=== PATIENT | male | born 1965 | race Two or more races ===

== ENCOUNTER 2021-08-18 16:33 | Inpatient (IN) | payer SELFPAY ==
[~2021-08-18] VITALS: Ht 167.6 cm; Wt 68.5 kg
[2021-08-18] MEDS ORDERED: DIPHENHYDRAMINE 50MG/ML VIAL IM STA (17:33)
[2021-08-18] MEDS ORDERED: LORAZEPAM 2MG/ML CPJ IM STA (17:33)
[2021-08-18] MEDS ORDERED: OLANZAPINE 10 MG/VIAL IM STA (17:33)
[2021-08-18] MEDS ORDERED: PIPERACILLIN/TAZ 3.375G PREMIX 50 ML IV ONE (20:15)
[2021-08-18] MEDS ORDERED: VANCOMYCIN 1G PREMIX 200 ML IV ONE (20:15)
[2021-08-18] MEDS ORDERED: SODIUM CHLORIDE 0.9% 1000ML BAG (SEPSIS BOLUS) IV ONE (20:15)
[2021-08-18 21:31] LABS: BASOPHILS % 0.6 % (0.0-2.0); EOSINOPHILS % 1.3 % (0.0-5.0); HEMATOCRIT. 30.6 % (42.0-52.0); HEMOGLOBIN. 10.2 g/dL (14.0-18.0); LYMPHOCYTES % 24.6 % (20.0-50.0); MEAN CORPUSCULAR HEMOGLOBIN 29.3 pg (28.0-32.0); MEAN CORPUSCULAR VOLUME 88.4 fL (80.0-94.0); MEAN PLATELET VOLUME 6.7 fl (7.4-10.4); MONOCYTES % 10.3 % (2.0-8.0); NEUTROPHILS % 63.2 % (40.0-76.0); PLATELET 443 x1000/uL (130-400); RED BLOOD CELL COUNT 3.47 mill/uL (4.7-6.1); RED CELL DISTRIBUTION WIDTH 13.9 % (11.6-14.6)
[2021-08-18 21:46] LABS: CHLORIDE 107 mEq/L (98-107)
[2021-08-18 21:56] LABS: ETHANOL BLOOD < 10 mg/dL
[2021-08-19] MEDS ORDERED: PIPERACILLIN/TAZ 3.375G PREMIX 50 ML IV NR (00:45)
[2021-08-19] MEDS ORDERED: CLONIDINE 0.1MG TABLET PO PRN (10:00)
[2021-08-19] MEDS ORDERED: GUAIFENESIN 200MG/10ML SUGAR FREE UDC PO PRN (10:00)
[2021-08-19] MEDS ORDERED: ONDANSETRON HCL 4MG/2ML INJ IV PRN (10:00)
[2021-08-19] MEDS ORDERED: MAGNESIUM/ALUMINUM HYDROXIDE/SIMETHICONE 30ML UDC PO PRN (10:00)
[2021-08-19] MEDS ORDERED: DOCUSATE SODIUM 100MG CAPSULE PO PRN (10:00)
[2021-08-19] MEDS ORDERED: IPRATROPIUM/ALBUTEROL 0.5-3(2.5)MG/3ML NEB NEB PRN (10:00)
[2021-08-19] MEDS ORDERED: NITROGLYCERIN 0.4MG TABLET SL SL PRN (10:00)
[2021-08-19] MEDS ORDERED: KETOROLAC 15MG/ML VIAL IV PRN (10:00)
[2021-08-19] MEDS ORDERED: ACETAMINOPHEN 325MG TABLET PO PRN ×2 (10:00)
[2021-08-19] MEDS: ZINC SULFATE 220 MG ( 50 ) CAPSULE PO SCH (12:16)
[2021-08-19] MEDS: CHOLECALCIFEROL (D3) 1000 UNIT TABLET PO SCH (12:16)
[2021-08-19] MEDS: ENOXAPARIN 40MG/0.4ML SYR SUBCUT SCH (12:17)
[2021-08-19] MEDS: HALOPERIDOL LACTATE 5MG/ML VIAL IM PRN (14:12)
[2021-08-19] MEDS: PIPERACILLIN/TAZ 3.375G PREMIX 50 ML IV SCH ×2 (15:30→22:00)
[2021-08-19] MEDS: VANCOMYCIN 750 MG in DEXT 5% WATER 250 ML IV SCH ×2 (16:00→20:00)
[2021-08-19] MEDS: RISPERIDONE 0.5MG TABLET PO SCH (17:00)
[2021-08-19 17:39] VITALS: BP 93/55
[2021-08-19] MEDS: ASCORBIC ACID 500 MG TABLET PO SCH (21:00)
[2021-08-19] MEDS: FAMOTIDINE 20MG TABLET PO SCH (21:00)
[2021-08-19 22:05] LABS: CREATINE KINASE MB FRACTION 2.8 ng/mL (0.5-3.6)
[2021-08-19 22:20] LABS: FOLIC ACID (FOLATE) SERUM 10.8 ng/mL (>5.38)
[2021-08-20] VITALS: BP 104/70
[2021-08-20] MEDS: HALOPERIDOL LACTATE 5MG/ML VIAL IM PRN (00:37)
[2021-08-20] MEDS: VANCOMYCIN 750 MG in DEXT 5% WATER 250 ML IV SCH ×3 (04:00→20:00)
[2021-08-20] MEDS: PIPERACILLIN/TAZ 3.375G PREMIX 50 ML IV SCH (05:29)
[2021-08-20] MEDS: FAMOTIDINE 20MG TABLET PO SCH ×2 (09:00→21:21)
[2021-08-20] MEDS: ASCORBIC ACID 500 MG TABLET PO SCH ×2 (09:00→21:21)
[2021-08-20] MEDS: ZINC SULFATE 220 MG ( 50 ) CAPSULE PO SCH (09:00)
[2021-08-20] MEDS: ENOXAPARIN 40MG/0.4ML SYR SUBCUT SCH (09:00)
[2021-08-20] MEDS: RISPERIDONE 0.5MG TABLET PO SCH ×3 (09:00→21:22)
[2021-08-20] MEDS: CHOLECALCIFEROL (D3) 1000 UNIT TABLET PO SCH (09:00)
[2021-08-20 12:00] VITALS: BP 104/51
[2021-08-20] MEDS: PIPERACILLIN/TAZOBACTAM 3.375G in DEXT 5% WATER 50ML IV SCH ×2 (14:00→22:00)
[2021-08-20 16:00] VITALS: BP 99/59
[2021-08-20 17:00] LABS: BASOPHILS % 1.8 % (0.0-2.0); EOSINOPHILS % 1.1 % (0.0-5.0); HEMATOCRIT. 35.5 % (42.0-52.0); HEMOGLOBIN. 11.5 g/dL (14.0-18.0); LYMPHOCYTES % 36.1 % (20.0-50.0); MEAN CORPUSCULAR HEMOGLOBIN 29.2 pg (28.0-32.0); MEAN CORPUSCULAR VOLUME 89.8 fL (80.0-94.0); MEAN PLATELET VOLUME 6.9 fl (7.4-10.4); MONOCYTES % 8.9 % (2.0-8.0); NEUTROPHILS % 52.1 % (40.0-76.0); PLATELET 477 x1000/uL (130-400); RED BLOOD CELL COUNT 3.95 mill/uL (4.7-6.1); RED CELL DISTRIBUTION WIDTH 14.4 % (11.6-14.6)
[2021-08-20 17:30] LABS: CHLORIDE 104 mEq/L (98-107)
[2021-08-20 17:38] LABS: PHOSPHORUS 2.9 mg/dL (2.5-4.9)
[2021-08-20 19:01] VITALS: BP 99/59
[2021-08-20 20:00] VITALS: BP 100/62
[2021-08-20] MEDS: ZOLPIDEM TARTRATE 5MG TABLET PO PRN (21:22)
[2021-08-21] VITALS: BP 132/79
[2021-08-21 04:00] VITALS: BP 108/73
[2021-08-21] MEDS: VANCOMYCIN 750 MG in DEXT 5% WATER 250 ML IV SCH ×3 (04:00→20:00)
[2021-08-21 08:00] VITALS: BP 98/64
[2021-08-21] MEDS: ASCORBIC ACID 500 MG TABLET PO SCH ×2 (09:00→21:28)
[2021-08-21] MEDS: CHOLECALCIFEROL (D3) 1000 UNIT TABLET PO SCH (09:00)
[2021-08-21] MEDS: RISPERIDONE 0.5MG TABLET PO SCH ×2 (09:00→17:00)
[2021-08-21] MEDS: FAMOTIDINE 20MG TABLET PO SCH ×2 (09:00→21:28)
[2021-08-21] MEDS: ENOXAPARIN 40MG/0.4ML SYR SUBCUT SCH (09:00)
[2021-08-21] MEDS: ZINC SULFATE 220 MG ( 50 ) CAPSULE PO SCH (09:00)
[2021-08-21 12:00] VITALS: BP 124/76
[2021-08-21] MEDS: PIPERACILLIN/TAZOBACTAM 3.375G in DEXT 5% WATER 50ML IV SCH ×2 (14:00→22:00)
[2021-08-21 16:00] VITALS: BP 102/69
[2021-08-21 20:00] VITALS: BP 106/67
[2021-08-21] MEDS: ZOLPIDEM TARTRATE 5MG TABLET PO PRN (21:28)
[2021-08-22] VITALS: BP 97/52
[2021-08-22 04:00] VITALS: BP 100/59
[2021-08-22] MEDS: VANCOMYCIN 750 MG in DEXT 5% WATER 250 ML IV SCH ×3 (04:00→19:54)
[2021-08-22] MEDS: PIPERACILLIN/TAZOBACTAM 3.375G in DEXT 5% WATER 50ML IV SCH ×3 (06:00→21:40)
[2021-08-22 08:00] VITALS: BP 106/57
[2021-08-22] MEDS: RISPERIDONE 0.5MG TABLET PO SCH ×2 (09:00→17:00)
[2021-08-22] MEDS: ZINC SULFATE 220 MG ( 50 ) CAPSULE PO SCH (09:00)
[2021-08-22] MEDS: ENOXAPARIN 40MG/0.4ML SYR SUBCUT SCH (09:00)
[2021-08-22] MEDS: FAMOTIDINE 20MG TABLET PO SCH ×2 (09:00→20:44)
[2021-08-22] MEDS: ASCORBIC ACID 500 MG TABLET PO SCH ×2 (09:00→20:45)
[2021-08-22] MEDS: CHOLECALCIFEROL (D3) 1000 UNIT TABLET PO SCH (09:00)
[2021-08-22 12:00] VITALS: BP 105/70
[2021-08-22] MEDS: HALOPERIDOL LACTATE 5MG/ML VIAL IM PRN (13:01)
[2021-08-23] MEDS: VANCOMYCIN 750 MG in DEXT 5% WATER 250 ML IV SCH (03:43)
[2021-08-23 04:00] VITALS: BP 100/58
[2021-08-23] MEDS: PIPERACILLIN/TAZOBACTAM 3.375G in DEXT 5% WATER 50ML IV SCH (05:46)
[2021-08-23] MEDS: ENOXAPARIN 40MG/0.4ML SYR SUBCUT SCH (09:00)
[2021-08-23] MEDS: FAMOTIDINE 20MG TABLET PO SCH (09:23)
[2021-08-23] MEDS: RISPERIDONE 0.5MG TABLET PO SCH (09:23)
[2021-08-23] MEDS: CHOLECALCIFEROL (D3) 1000 UNIT TABLET PO SCH (09:23)
[2021-08-23] MEDS: ASCORBIC ACID 500 MG TABLET PO SCH (09:23)
[2021-08-23] MEDS: ZINC SULFATE 220 MG ( 50 ) CAPSULE PO SCH (09:23)
== END 2021-08-23 10:15 | disposition home or self-care (01) | DRG 720 ==
LOC: ER 16:33 → 7WST 08-19 03:09 → EDBD 08-19 03:09 → ENRESERV 08-19 07:25 → CANRESERV 08-19 07:25 → ENRESERV 08-19 13:44 → EDBEDREQSVC 08-19 15:27 → ENRESERV 08-19 15:37
PROVIDERS: ADMIT Internal Medicine; ATTEND Internal Medicine
DX: A41.9 Sepsis, unspecified organism (principal); G92.8 Other toxic encephalopathy; E44.0 Moderate protein-calorie malnutrition; D63.8 Anemia in other chronic diseases classified elsewhere; F29 Unspecified psychosis not due to a substance or known physiological condition; L03.90 Cellulitis, unspecified; Z68.24 Body mass index [BMI] 24.0-24.9, adult
CPT/HCPCS: 36415; 71045; 80053; 80061; 80307; 80320; 80329; 82550; 82553; 82607; 82746; 83036; 83540; 83550; 83735; 84100; 84443; 84484; 85025; 93970; 99285; J1200; J1630; J1650; J2060; J2543; J3370; J3490; J7030; J7060; G0480